=== PATIENT | female | born 1965 | race Caucasian/White ===

== ENCOUNTER → 2018-10-13 | Outpatient (CLI) | payer OTHER ==
--- NOTE | 2018-10-13 13:10 | CARDNUC ---
[place] [address] CARDIAC NUCLEAR IMAGING REPORT Name: JEFF LUCAS Room: [facility]#: [id number] Admission: 10/13/18 Attend Phys: Griffin Liz, Discharge: Date of : 61 Date of Service: 10/13/18 1310 Report #: [id number] THIS REPORT FOR: //name// APPROVED REPORT Imaging Protocol: Rest Tc-99m/Stress Tc-99m 1 day Study performed: 10/13/2018 09:21:20 Indication: Chest pain Patient Location: Out-Patient Stress Tech: Edna Lynne Stress Nurse: Dayami Appiah RN NM Tech:DHARMESH Colon Ht: 5 ft 6 in Wt: 145 lbs BSA: 1.74 m2 BMI: 23.40 Medical History Medical History: Angina, CAD s/p [place], CAD s/p stent, Current Smoker, Diabetes, Fatigue, HTN, Hyperlipidemia, Back Surgery, FX Spine. Medications: ASA 81 Mg, Atorvastatin, Carvedilol, K+, Losartan. Allergies: Nacotics/Oxycotin, Sulfa ABT. Cardiac Risk Factors: Age, Current Smoker, DM, HTN, Hyperlipidemia. Previous Cardiac Procedures: Myocardial infarction, PCI Pretest Chest Pain Characteristics: No chest pain Exercise History: Indeterminate Physical Disabilities: s/p Back surgery from FX spine. Meds Held (24 hrs): Carvedilol. Resting Data Rest SPECT myocardial perfusion imaging was performed in supine position 30 minutes following the intravenous injection of 11.1 mCi of Tc-99m Sestamibi. Time of rest injection: 804 Date: 10/13/2018 The images were gated to evaluate regional wall motion and calculate left ventricular ejection fraction. Administration Route: IV Administration Site: Right Hand Pharmacologic Stress Pharmacologic stress test was performed by injecting Regadenoson 0.4 mg IV push over 10-15 seconds immediately [place] [address] CARDIAC NUCLEAR IMAGING REPORT Name: JEFF LUCAS Room: [facility]#: [id number] Admission: 10/13/18 Attend Phys: Griffin Liz, Discharge: Date of : 61 Date of Service: 10/13/18 1310 Report #: [id number] injection of 35.0 mCi of Tc-99m Sestamibi. Time of stress injection: 939 Date: 10/13/2018 Administration Route: IV Administration Site: Right Hand Gated Stress SPECT was performed 40 minutes after stress injection. The images were gated to evaluate regional wall motion and calculate left ventricular ejection fraction. Prone imaging was performed. Stress Test Details Stress Test: Pharmacologic stress was paired with low level exercise. Reason for pharmacologic stress test: physical limitation with back.. 60 mg caffeine given for Dizziness, chest pressure.. HR Max Heart Rate (APMHR): 165 bpm Resting HR: 88 bpm Target HR (85% APMHR): 140 bpm Max HR Achieved: 125 bpm % of APMHR: 75 Recovery HR: 96 bpm HR response to stress: Normal HR response to stress BP Resting BP: 178/109 mmHg Max BP: 186/112 mmHg Recovery BP: 187/117 mmHg BP response to stress: Normal blood pressure response to stress. ECG Resting ECG: nsr Stress ECG: nsr ST Change: .5mm ST horizontal ST depression Arrhythmia: none Recovery ECG: nsr Recovery ST Change: none Recovery Arrhythmia: none Clinical Reason for Termination: Completed protocol Stress Symptoms: Chest Tightness, SOA, Dizzy. Exercise duration: 4 min 01 sec Exercise capacity: 2.30 [place] [address] CARDIAC NUCLEAR IMAGING REPORT Name: LUCASJEFF Room: [facility]#: [id number] Admission: 10/13/18 Attend Phys: Griffin Liz, Discharge: Date of : 61 Date of Service: 10/13/18 1310 Report #: [id number] 53 year old female presented with recent HX Chest pressure. Back pain post surgery required low exercise Lexiscan test. Walking Lexiscan was well tolerated. Recovery required 60 MG of IV caffeine for effective resolution of dizziness and chest pressure, effective results. Patient was escorted by staff to Nuclear Medicine for images. Patient was stable with no further complaints at that time. PO Home B/P medication was taken by patient before leaving test room. Stress ECG Conclusion equivocal ECG findings Study Quality Study: Good Artifact: Mild Breast artifact Lung Uptake: Normal Study Data At rest, the left ventricular ejection fraction was 61%.. Post stress, the left ventricular ejection was 65%.. SSS: 18 SRS: 13 SDS: 5 TID = 1.04. Perfusion Review of SPECT images following vasodilator stress reveal a moderate sized , severe intensity basal to mid lateral wall defect. When imaged at rest this defect is noted to be fully reversible. No other perfusion defects are seen. No periinfarct ischemia is present.Prone imaging shows the defect persists. Images were reviewed using W4. Wall Motion basolateral hypokinesis Nuclear Conclusion ECG Findings: equivocal Clinical Findings: positive for ischemia Nuclear Findings: positive for ischemia Exercise Capacity: not assessed Left Ventricular Function: normal Risk Study: moderate There is a moderate sized ischemic abnormality of the basolateral wall.[place] [address] CARDIAC NUCLEAR IMAGING REPORT Name: JEFF LUCAS [id number] Admission: 10/13/18 Attend Phys: Griffin Liz, Discharge: Date of : 61 Date of Service: 10/13/18 1310 Report #: [id number] <Conclusion> equivocal ECG findings <ELECTRONICALLY SIGNED> By: Chele Heard MD, FACC 10/13/180 09 09 Chele Heard MD, FACC /INF
== END ==
LOC: M.NUC 09-10 16:06 → M.RAD 07:40 → M.NUC 08:00
DX: Z12.31 Encounter for screening mammogram for malignant neoplasm of breast (principal); I25.10 Atherosclerotic heart disease of native coronary artery without angina pectoris; M54.9 Dorsalgia, unspecified; G89.29 Other chronic pain; I10 Essential (primary) hypertension; E11.9 Type 2 diabetes mellitus without complications; F17.210 Nicotine dependence, cigarettes, uncomplicated; Z85.41 Personal history of malignant neoplasm of cervix uteri; Z85.828 Personal history of other malignant neoplasm of skin; Z90.710 Acquired absence of both cervix and uterus; Z95.5 Presence of coronary angioplasty implant and graft; Z79.899 Other long term (current) drug therapy

== ENCOUNTER → 2018-10-29 | Outpatient (CLI) | payer OTHER ==
[~2018-10-29] VITALS: Ht 170.2 cm; Wt 65.8 kg
[~2018-10-29] MED LIST: ASPIR 8181 MG PO; CATAPRES0.1 MG PO; COREG25 MG PO; CRANBERRY CONC1 EAC1 PO; FISH OIL 1,2001 EAC4 PO; HYZAAR 50-12.51 EACH PO; LIPITOR80 MG PO; NEURONTIN 300300 M1 PO; PAXIL 20 MG TAB20 MG PO; POTASSIUM600 MG PO; PROBIOTIC1 EAC1 PO; TRAMADOL 50 MG50 MG PO; TYLENOL EXTRA500 MG PO; ZANTAC 150MG T150 MG PO
[2018-10-29 11:37] LABS: HEMATOCRIT 47.6 % (37.0-47.0); HEMOGLOBIN 15.9 gm/dL (12.0-15.0); MCHC 33.3 g/dL (28.0-37.0); MCV 86.8 fL (80.0-100.0); MPV 8.4 fl. (7.2-11.1); RBC 5.48 mil/uL (4.20-5.00); RDW-CV 14.9 % (10.5-14.5); WBC 8.8 thou/uL (4.0-11.0)
[2018-10-29 11:46] LABS: ANION GAP 6 mmol/L (7-16); BUN 17 mg/dL (7-18); CALCIUM 9.6 mg/dL (8.5-10.1); CHLORIDE 103 mmol/L (98-107); CO2 32 mmol/L (21-32); GLUCOSE 146 mg/dL (70-99); POTASSIUM 3.6 mmol/L (3.5-5.1); SODIUM 141 mmol/L (136-145)
[2018-10-29 11:47] LABS: APTT 27.4 Seconds (25.0-31.3); INR 0.9; PROTIME 9.4 Seconds (9.20-11.50)
[2018-10-29 11:51] LABS: ALBUMIN 3.6 g/dL (3.4-5.0); ALKALINE PHOSPHATASE 113 U/L (46-116); CHOLESTEROL 141 mg/dL (<200); HDL CHOLESTEROL 52 mg/dL (>40); LDL CHOLESTEROL 64 mg/dL (<100); SGOT 21 U/L (15-37); SGPT 36 U/L (30-65); TC:HDL 2.7 Ratio (Not establshd); TOTAL BILIRUBIN 0.3 mg/dL (<0.1-1.0); TOTAL PROTEIN 7.4 g/dL (6.4-8.2); TRIGLYCERIDE 129 mg/dL (<150); VLDL 26 mg/dL (<40)
[2018-10-29 11:52] LABS: SERUM ASSESSMENT Clear
[2018-10-29 11:54] VITALS: BP 153/94
--- NOTE | 2018-10-29 17:05 | EKG ---
[place] [address] ELECTROCARDIOGRAM REPORT Name: JEFF LUCAS Room: [facility]#: [id number] Admission: 10/29/18 Attend Phys: Griffin Liz MD Discharge: Date of : 61 Report #: [id number] THIS REPORT FOR: //name// [facility] Test Date: 2018-10-29 Test Time: 11:19:15 Pat Name: JEFF LUCAS Department: Room: Gender: F [employer] Cook: : 1965 Requested By: Griffin Liz Order Number: [id number] Reading MD: Griffin Liz Measurements Intervals [place] Rate: 74 P: 48 PA: 165 QRS: 0 QRSD: 96 T: 4 QT: 383 QTc: 425 Interpretive Statements Sinus rhythm Left ventricular hypertrophy, by voltage Inferior infarct, old Compared to ECG 11/29/2008 16:50:23 Left ventricular hypertrophy now present Myocardial infarct finding now present Sinus tachycardia no longer present Electronically Signed On 10-29-2018 17:05:25 CDT by Griffin Liz [email or web address] <ELECTRONICALLY SIGNED> By: Griffin Liz MD, [facility] 10/29/18 2675 1119 1119 Griffin Liz MD, [facility] /EPI
--- NOTE | 2018-11-08 20:28 | CARD ---
[address] [address] CARDIAC CATH REPORT Name: JEFF LUCAS Room: [facility] Olivo#: [id number] Admission: 10/29/18 Attend Phys: Griffin Liz MD Discharge: Date of : 61 Report #: [id number] THIS REPORT FOR: //name// ADDENDUM APPROVED REPORT Study performed: 10/29/2018 11:40:32 Patient Details Patient Status: OP Room #: The patient is a 53 year-old female Event Personnel Griffin Liz Media Liaison Officer, Selene Clarke RN Commission Clerk, Josue Mckay GARDEN WORKER Scrub, Vane Nelson RTR Scrub, Kunal Spence (R) Monitor, Johanne Bauer RTR Monitor, Antolin Matos It Portfolio Manager Procedures Performed Left Heart Cath w/or w/o Coronaries [id number] LHC and PTCA Indication Chest pain Risk Factors Hypercholesterolemia, Coronary Artery Disease Previous Procedures/Diagnoses Previous PCI Admission/Lab Medications/Medications given during procedure Heparin Unfract. Procedure Narrative The patient was brought electively to the Cardiac Catheterization Laboratory and was prepped and draped in a sterile manner. The right wrist was infiltrated with subcutaneous anesthesia. A Slender Glidesheath sheath was inserted into the right radial artery. Coronary angiography was performed using coronary diagnostic catheters. The right coronary system was accessed and visualized with a DCR: Lincoln 4.0 5fr catheter. The left coronary system was accessed and visualized with a JL4 5fr catheter. The left ventricle was accessed and visualized with a PC: Angled Pig 5fr catheter. Left ventricular/Aortic Valve gradient assessed via catheter pullback. Left ventriculogram was performed in [place] [address] CARDIAC CATH REPORT Name: SHAYYJEFF HENDERSONN Room: [facility]#: [id number] Admission: 10/29/18 Attend Phys: Griffin Liz MD Discharge: Date of : 61 Report #: [id number] was deployed with a 6 Fr regular vascular band. The patient tolerated the procedure well and there were no complications associated with the procedure. There was no hematoma. Intraoperative Conscious Sedation Sedation start time: 1207 Case end Time: 1325 Fentanyl 75 mcg Versed 3 mg Fluoro Time: 13.5 minutes Dose: DAP 543040 cGycm2 1865 mGy Contrast Type and Amount: Omnipaque 200 ml Coronary Angiography The patient's coronary anatomy is co- dominant. Diagnostic Cath Left Main Normal. LAD Mildly plaqued up to 10% in the proximal and midportion without hemodynamically significant stenoses. The distal vessel is normal. Diagonal 1 Small and mildly diffusely plaqued. Diagonal 2 Large branched and normal. Circumflex Plaqued proximally and totally occluded after the takeoff of a moderate size second marginal branch. The distal circumflex fills by left to left collaterals. OM1 Small and mildly diffusely plaqued without hemodynamically stenosis. OM2 Large in size with no significant disease. OM3 Large vessel filled by left to left collaterals. Right Coronary Totally occluded proximally with recanalization filling the mid and distal RCA. R PDA Small in caliber and free of significant disease. Left Ventriculography Left Ventriculography was not performed. Hemodynamics The aortic pressure is 131/73 mmHg with a mean of 98 mmHg. The left ventricular pressure is 113/2 mmHg with a mean of mmHg. The left ventricular end diastolic pressure is 5 mmHg. There was no gradient across the aortic valve upon pullback. Pullback from the left ventricle to the aorta revealed no gradient across the aortic valve[place] [address] CARDIAC CATH REPORT Name: LUCASJEFF LURDES Room: [facility]#: [id number] Admission: 10/29/18 Attend Phys: Griffin Liz MD Discharge: Date of : 61 Report #: [id number] Anticoagulation was achieved with Heparin. Percutaneous coronary intervention was performed on the mid right coronary artery. The lesion stenosis prior to intervention was 100% with EMA 1 flow. A 6FR JCR 4 100CM Guide Catheter was used to engage the rca ostium. A IG: BMW 190cm Interventional Guidewire was used to cross the lesion. BALLOON DILATION Unable to cross occlusion with neither bmw, fielder xt, nor choice pt wire. Occlusion felt to represent a chronic occlusion with antegrade flow by bridging collaterals. Final angiography reveals 100 % stenosis with EMA 1 flow. PCI Technique Lesion 2 Percutaneous Coronary Intervention was performed on the mid circumflex artery segment. Percutaneous coronary intervention was performed on the mid circumflex artery segment. The lesion stenosis prior to intervention was 100% with EMA 0 flow. A 6FR XB 3.5 100CM Guide Catheter was used to engage the lm ostium. A IG: BMW 190cm Interventional Guidewire was used to cross the lesion. Balloon Dilation Unable to cross occlusion with neither bmw, fielder xt, nor choice pt wire. Occlusion felt to represent a chronic occlusion. Final angiography reveals 100 % stenosis with EMA 0 flow. Conclusion 1. chronic occlusion of stent in the mid circumflex artery. 2. chronic occlusion of the mid rca that filled by bridging collaterals 3. unalbe to advance several wires across occlusions in neither the circumflex nor rca Recommendations 1. Continue aggressive risk factor modification and medical management. Diagnostic Cath Approved by: Antolin Matos MD Date/Time: <ELECTRONICALLY SIGNED> By: Antolin Matos MD, [facility] 11/08/182027 27 27Davijosi Matos MD, FACC /INF
== END | disposition home or self-care (01) ==
LOC: M.CL 10:45
PROVIDERS: Internal Medicine Cardiovascular Disease
DX: I25.10 Atherosclerotic heart disease of native coronary artery without angina pectoris (principal); I25.82 Chronic total occlusion of coronary artery; T82.855A Stenosis of coronary artery stent, initial encounter; E78.00 Pure hypercholesterolemia, unspecified; I10 Essential (primary) hypertension; I25.2 Old myocardial infarction; F17.210 Nicotine dependence, cigarettes, uncomplicated; Z98.890 Other specified postprocedural states; Z90.710 Acquired absence of both cervix and uterus; Z79.899 Other long term (current) drug therapy; Z85.41 Personal history of malignant neoplasm of cervix uteri; Z85.828 Personal history of other malignant neoplasm of skin; Z88.8 Allergy status to other drugs, medicaments and biological substances; Z79.82 Long term (current) use of aspirin

== ENCOUNTER → 2018-11-16 | Outpatient (CLI) | payer OTHER ==
[~2018-11-16] VITALS: Ht 167.6 cm; Wt 65.8 kg
[2018-11-16] VITALS (9 sets, daily range): BP systolic 134–1471; BP diastolic 82–947
[2018-11-16 10:00] LABS: HEMATOCRIT 46.9 % (37.0-47.0); HEMOGLOBIN 15.7 gm/dL (12.0-15.0); MCH 28.9 pg (26.0-34.0); MCHC 33.5 g/dL (28.0-37.0); MCV 86.3 fL (80.0-100.0); MPV 8.2 fl. (7.2-11.1); RBC 5.43 mil/uL (4.20-5.00); RDW-CV 14.6 % (10.5-14.5); WBC 9.2 thou/uL (4.0-11.0)
[2018-11-16 10:21] LABS: ANION GAP 9 mmol/L (7-16); BUN 22 mg/dL (7-18); CALCIUM 9.4 mg/dL (8.5-10.1); CHLORIDE 101 mmol/L (98-107); CO2 29 mmol/L (21-32); GLUCOSE 148 mg/dL (70-99); POTASSIUM 3.8 mmol/L (3.5-5.1); SODIUM 139 mmol/L (136-145)
[2018-11-16 10:25] LABS: ALBUMIN 3.6 g/dL (3.4-5.0); ALKALINE PHOSPHATASE 119 U/L (46-116); CHOLESTEROL 144 mg/dL (<200); HDL CHOLESTEROL 58 mg/dL (>40); LDL CHOLESTEROL 34 mg/dL (<100); SGOT 16 U/L (15-37); SGPT 35 U/L (30-65); TC:HDL 2.5 Ratio (Not establshd); TOTAL BILIRUBIN 0.3 mg/dL (<0.1-1.0); TOTAL PROTEIN 7.4 g/dL (6.4-8.2); TRIGLYCERIDE 264 mg/dL (<150); VLDL 53 mg/dL (<40)
[2018-11-16 10:26] LABS: APTT 25.7 Seconds (25.0-31.3); INR 0.9; PROTIME 9.4 Seconds (9.20-11.50); SERUM ASSESSMENT Clear
--- NOTE | 2018-11-16 17:06 | EKG ---
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: DIDIER : 1965 Requested By: Calvin Gandara Order Number: [id number] Barrera MD: Griffin Liz Measurements Intervals [place] Rate: 79 P: 53 [place]: 168 QRS: 10 QRSD: 96 T: 7 QT: 387 QTc: 444 Interpretive Statements Sinus rhythm Inferior infarct, old Compared to ECG 10/29/2018 11:19:15 Left ventricular hypertrophy no longer present Myocardial infarct finding still present Electronically Signed On 11-16-2018 17:06:01 CDT by Griffin Liz [email or web address] <ELECTRONICALLY SIGNED> By: Griffin Liz MD, [facility] 11/16/18 1706 1007 1007 Griffin Liz MD, FACC /EPI
--- NOTE | 2018-11-17 13:50 | CARD ---
[address] [address] CARDIAC CATH REPORT Name: JEFF LUCAS Room: [facility] Olivo#: [id number] Admission: 11/16/18 Attend Phys: Griffin Liz MD Discharge: Date of : 61 Report #: [id number] THIS REPORT FOR: //name// APPROVED REPORT Study performed: 11/16/2018 10:43:14 Patient Details Patient Status: Out-Patient Room #: The patient is a 53 year-old female Event Personnel Calvin Gandara Drain Tile Machine Operator, Selene Clarke RN Magneto Specialist, Josue Mckay REFINERY TECHNICIAN Scrub, Shaq Delarosa REFINERY TECHNICIAN Monitor, Vane Nelson RTR Monitor Procedures Performed Left Heart Cath w/or w/o Coronaries; unsuccessful attempt at recanalization of the chronic total occlusion of the mid circumflex Indication Stable angina , Positive stress test Risk Factors Hypercholesterolemia, Hypertension Admission/Lab Medications/Medications given during procedure Heparin Unfract. Procedure Narrative The patient was brought electively to the Cardiac Catheterization Laboratory and was prepped and draped in a sterile manner. The right femoral was infiltrated with 2% Lidocaine subcutaneous anesthesia. A [place] 6 FR sheath was inserted into the right femoral artery. Coronary angiography was performed using coronary diagnostic catheters. The right coronary system was accessed and visualized with a Diagnostic JR 4 catheter. The left coronary system was accessed and visualized with a Diagnostic JL 4 catheter. Hemostasis was obtained with manual pressure following sheath removal without any complications. The patient tolerated the procedure well and there were no complications associated with the procedure. Intraoperative Conscious Sedation Sedation start time: 11:08 Case end Time: [address] [address] CARDIAC CATH REPORT Name: JEFF LUCAS [id number] Admission: 11/16/18 Attend Phys: Griffin Liz MD Discharge: Date of : 61 Report #: [id number] 12:06 Fentanyl 100 mcg Versed 4 mg Fluoro Time: 19.2 minutes Dose: DAP 214742 cGycm2 2717 mGy Contrast Type and Amount: Visipaque 220 ml Diagnostic Cath Left Main 0% narrowing LAD 40% proximal LAD stenosis Circumflex 100% chronic total occlusion of the mid circumflex with left to left collaterals filling the distal circumflex; there is 40% first marginal narrowing Right Coronary 90% proximal right coronary stenosis with 100% mid vessel occlusion with [id number]-ztcyn collaterals filling the distal right coronary system Left Ventriculography Left Ventriculography was not performed. Hemodynamics The aortic pressure is 141/76 mmHg with a mean of 98 mmHg. The left ventricular pressure is 143/1 mmHg with a mean of mmHg. The left ventricular end diastolic pressure is 10 mmHg. There was no gradient across the aortic valve upon pullback. PCI Technique I attempted to recanalize the chronic total occlusion of the mid circumflex. I placed a 6 Greenlandic XB LAD guide in the left coronary ostium and utilized support catheter. With the finecross catheter in place, I attempted to traverse the segment of chronic total occlusion of the mid circumflex with a soft wire and subsequently with a Fielder XT and a miracle bro 3. I was unable to traverse a segment of chronic total occlusion with reentry into the lumen distally. After several attempts, the procedure was abandoned and a final cineangiogram of the left coronary artery was obtained. The guiding catheter microcatheter and wire were withdrawn from the arterial circuit the arterial sheath was removed and local hemostasis was achieved with manual compression. Conclusion #1 significant multivessel coronary artery disease characterized by the following: A 40% [place] [address] CARDIAC CATH REPORT Name: JEFF LUCAS [id number] Admission: 11/16/18 Attend Phys: Griffin Liz MD Discharge: Date of : 61 Report #: [id number] B1 100% chronic total occlusion of the mid circumflex with 40% first marginal narrowing and kurq-[id number] collaterals filling the distal circumflex C 90% proximal right coronary stenosis with 100% chronic total occlusion of mid right coronary artery with hjvz-xn-vfrmr collaterals filling the distal right coronary system #2 normal left-sided hemodynamics study #3 unsuccessful attempt at recanalization of the chronic total occlusion of the mid circumflex Recommendations Cardiac Risk Reduction Program Aggressive Medical Therapy Diagnostic Cath Approved by: Calvin Gandara MD Date/Time: 11/17/2018 13:46:48 <ELECTRONICALLY SIGNED> By: Calvin Gandara MD, [facility] 11/17/18 1350 49 1350Calvin Gandara MD, [facility] /INF
== END | disposition home or self-care (01) ==
LOC: M.CL 09:18
PROVIDERS: Internal Medicine
DX: I25.118 Atherosclerotic heart disease of native coronary artery with other forms of angina pectoris (principal); I25.82 Chronic total occlusion of coronary artery; I25.2 Old myocardial infarction; E78.00 Pure hypercholesterolemia, unspecified; F17.210 Nicotine dependence, cigarettes, uncomplicated; Z85.828 Personal history of other malignant neoplasm of skin; Z90.710 Acquired absence of both cervix and uterus; Z98.890 Other specified postprocedural states; Z79.899 Other long term (current) drug therapy; Z85.41 Personal history of malignant neoplasm of cervix uteri; Z88.8 Allergy status to other drugs, medicaments and biological substances; Z79.82 Long term (current) use of aspirin; Z79.01 Long term (current) use of anticoagulants

== ENCOUNTER 2018-12-15 20:19 | Inpatient (IN) | payer OTHER ==
[~2018-12-15] VITALS: Ht 167.6 cm; Wt 74.7 kg
--- NOTE | ~2018-12-15 | EEG ---
[address] [address] EEG STUDY REPORT Name: JEFF LUCAS Room: [address] M.R.#: [id number] Admission: 12/16/18 Attend Phys: Jaleel Villaseñor MD Discharge: Date of : 61 Report #: [id number] THIS REPORT FOR: //name// [facility] DATE OF SERVICE: 12/16/2018 This patient is admitted with an episode of confusion. EEG is being done to evaluate that further. EEG was done by placing the electrode by standard 10-20 system of electrode placement. Both referential and sequential montages were used for recording. Background activity in this patient's EEG is about 9 Hz and 30 microvolt. The patient went to sleep and that is associated with bilateral slowing and vertex sharp waves. Photic stimulation is unremarkable. Throughout the record, no active epileptiform activity was noticed. IMPRESSION: This patient's EEG does not demonstrate any clear-cut epileptiform activity and was mostly unremarkable. Thank you very much for this referral. By: 1807 2056Miguel Smith MD /nt
--- NOTE | ~2018-12-15 | CON ---
[address] [address] CONSULTATION Name: LUCASJEFF HENDERSONN Room: [address] M.R.#: [id number] Admission: 12/16/18 Attend Phys: Jaleel Villaseñor MD Discharge: Date of : 61 Report #: [id number] THIS REPORT FOR: //name// CC: Jaleel Garcia DATE OF SERVICE: 12/16/2018 HISTORY OF PRESENT ILLNESS: This is a 53-year-old female patient who was admitted last night with unusual symptoms. She had an episode where she had double vision. She got ataxic and she got confused. She had just started cardiac medication Imdur, as I understand, and her blood pressure did fall down to 110 that was the lowest systolic blood pressure here. She said she never had this kind of episode and she is not anxious. I talked to the Emergency Room physician and he did a CT scan and subsequently a CT angiogram that looks mostly unremarkable. She feels she is back to the baseline. She is able to ambulate. REVIEW OF SYSTEMS: Positive for coronary artery disease and she had an episode described above. She denies any psychiatric history. She had some back problems and cervical cancer. She had a stent placed in 2008 and she has a history of hypertension. This was a relevant 14-point review of system. PAST MEDICAL HISTORY: Negative for this kind of episode. FAMILY HISTORY: Positive for stroke, but in the older age. SOCIAL HISTORY: She smokes, but she said she is trying to quit. PHYSICAL EXAMINATION: NEUROLOGIC: Indicate that she is alert. She is responsive. She can follow simple commands. Her affect looks somewhat unusual. Cranial nerve examinations appear unremarkable. Neuromuscular examination also looks symmetrical. There is no cerebellar sign. I could not look at the patient's fundus. There is no meningeal sign. Pulses appeared to be palpable. She has no edema, cyanosis or jaundice. VITAL SIGNS: Blood pressure is 132/90, respirations 17, pulse is 78, and temperature is 97.8. LABORATORY DATA: White count is 9.5. Sodium is 137. She had a CT and CT angio, which looks mostly unremarkable. IMPRESSION: An episode which is poorly defined. If we can find some abnormality in the posterior fossa, we can make a case that hypotension caused the symptoms like she had. Otherwise, it is difficult to [place] [address] CONSULTATION Name: JEFF LUCAS Room: [address] IN [facility]#: [id number] Admission: 12/16/18 Attend Phys: Jaleel Villaseñor MD Discharge: Date of : 61 Report #: [id number] PLAN: We will get an MRI done, we can get an EEG done. If they are also unremarkable then the main management is going to be the management of her vascular risk factors. I ordered the workup, we will check on that and see if that shows any abnormality. Thank you very much for this referral. By: 1133 2203Pankita Smith MD /nt
[2018-12-15 20:19] VITALS: BP 140/92
[2018-12-15] MEDS ORDERED: PLAVIX 75 MG TA75 M1 PO (20:32)
[2018-12-15] MEDS ORDERED: METOPROLOL TART25 MG PO (20:34)
[2018-12-15 21:05] LABS: ABSOLUTE EOSINOPHILS 0.1 thou/uL (0.0-0.7); ABSOLUTE LYMPHOCYTES 3.1 thou/uL (0.8-5.3); ABSOLUTE MONOCYTES 0.7 thou/uL (0.0-1.2); ABSOLUTE NEUTROPHILS 5.5 thou/uL (1.6-8.1); BASOPHILS 0.4 %; EOSINOPHILS 1.5 %; HEMATOCRIT 41.5 % (37.0-47.0); HEMOGLOBIN 13.9 gm/dL (12.0-15.0); LYMPHOCYTES 32.4 %; MCH 29.4 pg (26.0-34.0); MCHC 33.4 g/dL (28.0-37.0); MCV 88.1 fL (80.0-100.0); MONOCYTES 7.4 %; MPV 7.9 fl. (7.2-11.1); NUCLEATED RBCS 0 /100WBC; PLATELET COUNT* 225 thou/uL (150-400); POLYS 58.3 %; RBC 4.71 mil/uL (4.20-5.00); RDW-CV 14.5 % (10.5-14.5); WBC 9.5 thou/uL (4.0-11.0)
[2018-12-15 21:14] LABS: ANION GAP 9 mmol/L (7-16); BUN 18 mg/dL (7-18); CALCIUM 9.4 mg/dL (8.5-10.1); CHLORIDE 101 mmol/L (98-107); CO2 27 mmol/L (21-32); CREATININE 0.9 mg/dL (0.6-1.3); GLUCOSE 94 mg/dL (70-99); POTASSIUM 3.3 mmol/L (3.5-5.1); SODIUM 137 mmol/L (136-145)
[2018-12-15 21:18] LABS: PROTIME 10.2 Seconds (9.20-11.50)
[2018-12-15 21:25] LABS: ALBUMIN 3.6 g/dL (3.4-5.0); ALKALINE PHOSPHATASE 99 U/L (46-116); LIPASE 282 U/L (73-393); NT-PRO BRAIN NAT PEPTIDE 212 pg/mL (<300); SGOT 22 U/L (15-37); SGPT 32 U/L (30-65); TOTAL BILIRUBIN 0.5 mg/dL (<0.1-1.0); TROPONIN-I LEVEL <0.06 ng/mL (<0.06)
[2018-12-15] MEDS ORDERED: IMDUR 30 MG TAB30 M1 PO (21:37)
[2018-12-15 22:21] LABS: URINE BILIRUBIN NEGATIVE (Negative); URINE BLOOD NEGATIVE (Negative); URINE CLARITY CLEAR; URINE COLOR YELLOW; URINE GLUCOSE-RANDOM NEGATIVE (Negative); URINE KETONES NEGATIVE (Negative); URINE LEUKOCYTES-REFLEX NEGATIVE (Negative); URINE NITRITE-REFLEX NEGATIVE (Negative); URINE PROTEIN NEGATIVE (Negative); URINE SPECIFIC GRAVITY <= 1.005 (1.005-1.030); URINE UROBILINOGEN 0.2 E.U./dl (0.2-1.0)
[2018-12-15 22:28] LABS: AMP/METHAMP Negative (Negative); BARBITURATES Negative (Negative); BENZODIAZEPINES Negative (Negative); COCAINE Negative (Negative); METHADONE Negative (Negative); OPIATES Negative (Negative); PCP Negative (Negative); THC Negative (Negative)
[2018-12-16] VITALS (8 sets, daily range): BP systolic 108–158; BP diastolic 65–90
--- NOTE | 2018-12-16 10:27 | EKG ---
[place] [address] ELECTROCARDIOGRAM REPORT Name: JEFF LUCSA Room: [address] ADM IN .R.#: [id number] Admission: 12/16/18 Attend Phys: Jaleel Villaseñor MD Discharge: Date of : 61 Report #: [id number] THIS REPORT FOR: //name// 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: [place] : 1965 Requested By: Mitch Troy Order Number: [id number] MD: Antolin Matos Measurements Intervals [place] Rate: 71 P: 48 PA: 172 QRS: -7 QRSD: 98 T: -4 QT: 406 QTc: 442 Interpretive Statements Sinus rhythm Left ventricular hypertrophy Inferior infarct, old Compared to ECG 11/16/2018 10:07:40 Left ventricular hypertrophy now present Myocardial infarct finding still present Electronically Signed On 12-16-2018 10:27:02 CDT by Antolin Matos [email or web address] <ELECTRONICALLY SIGNED> By: Antolin Matos MD, [facility] 12/16/18 1027 2030 29 Antolin Matos MD, [facility] /EPI
--- NOTE | 2018-12-16 13:43 | 2DMMODE ---
[place] [address] 2 D/M-MODE ECHOCARDIOGRAM Name: JEFF LUCAS Room: [facility]M [facility]#: [id number] Admission: 12/16/18 Attend Phys: Jaleel Villaseñor, Discharge: Date of : 61 Date of Service: 12/16/18 1343 Report #: [id number] THIS REPORT FOR: //name// APPROVED REPORT Study performed: 12/16/2018 10:50:17 EXAM: Limited 2D Echocardiogram Patient Location: In-Patient Room #: 218 Status: routine BSA: 1.81 HR: 78 bpm BP: 132/90 mmHg Rhythm: NSR Other Information Study Quality: Good Indications CVA/TIA Echo Enhancing Agent Indication: Rule out Shunt Agent(s) / Amount(s) Used: Agitated Saline 10 cc Left Ventricle The left ventricle is normal size. There is normal left ventricular wall thickness. The left ventricular systolic function is normal. The left ventricular ejection fraction is within the normal range. LVEF is 60-65%. Right Ventricle The right ventricle is normal size. The right ventricular systolic function is normal. Atria The left atrium size is normal. Interatrial septum is intact without evidence of ASD or PFO. The right atrium size is normal. Aortic Valve The aortic valve is normal in structure. Mitral Valve The mitral [place] [address] 2 D/M-MODE ECHOCARDIOGRAM Name: JEFF LUCAS Room: [address] IN M.R.#: [id number] Admission: 12/16/18 Attend Phys: Jaleel Villaseñor, Discharge: Date of : 61 Date of Service: 12/16/18 134 Report #: [id number] Tricuspid Valve The tricuspid valve is normal in structure. Pulmonic Valve Pulmonic valve is not well visualized. Great Vessels The aortic root is normal in size. IVC is normal in size and collapses >50% with inspiration. Pericardium There is no pericardial effusion. <Conclusion> LVEF is 60-65%. Interatrial septum is intact without evidence of ASD or PFO. <ELECTRONICALLY SIGNED> By: Antolin Matos MD, FACC 12/16/18 1343 42 42 Antolin Matos MD, FACC /INF
[2018-12-17] VITALS (11 sets, daily range): BP systolic 129–157; BP diastolic 75–103
--- NOTE | 2018-12-18 14:38 | CON ---
[address] [address] CONSULTATION Name: JEFF LUCAS Room: [address] IN M.R.#: [id number] Admission: 12/16/18 Attend Phys: Jaleel Villaseñor MD Discharge: 12/17/18 Date of : 61 Report #: [id number] THIS REPORT FOR: //name// CC: Jaleel Garcia DO DATE OF SERVICE: 12/17/2018 CARDIOLOGY CONSULT INDICATION: Stroke. HISTORY OF PRESENT ILLNESS: The patient is a 53-year-old white female with coronary artery disease. She had a drug-eluting stent placed to the mid circumflex in 2008 in the setting of an acute myocardial infarction. More recently, she underwent cardiac catheterization after an abnormal stress test and was found to have chronic total occlusion of the mid circumflex coronary artery and chronic total occlusion of the mid right coronary artery with collateral perfusion distally in both territories. The patient had unsuccessful percutaneous coronary intervention attempts. She has continued to have angina. She has tentatively been arranged to undergo chronic total occlusion intervention at [facility] in the near future. The patient was admitted to the hospital 2 nights ago with acute mental status changes, diplopia and slurred speech. It was felt that she likely had a stroke. She was offered, but not given reperfusion therapy with TPA. MRI today shows a small left thalamic subacute ischemic lacunar infarct. Her symptoms have totally resolved. At this point in time, she is without cardiac complaint. She is not having chest pain. PAST MEDICAL HISTORY: 1. Coronary artery disease with previous percutaneous coronary intervention to the mid circumflex remotely as outlined above. More recently, she was found to have chronic total occlusions of the mid right coronary artery and mid circumflex coronary artery. She has preserved left ventricular systolic function. 2. Hypertension. 3. Hyperlipidemia. 4. Type 2 diabetes mellitus. 5. Nephrolithiasis. 6. Chronic back pain. 7. Cervical cancer remotely. 8. Skin cancer removal, remotely. 9. Back surgery in 2007. 10. Hernia repair. 11. [place] [address] CONSULTATION Name: LUCASJEFF LRUDES Room: [address]#: [id number] Admission: 12/16/18 Attend Phys: Jaleel Villaseñor MD Discharge: 12/17/18 Date of : 61 Report #: [id number] FAMILY HISTORY: Positive for coronary artery disease in the father. SOCIAL HISTORY: The patient smokes 1/4 of a pack of cigarettes daily. She does not drink alcohol. ALLERGIES: SULFA. CURRENT MEDICATIONS: Tylenol p.r.n., aspirin 81 mg daily, Lipitor 80 mg daily, carvedilol 25 mg b.i.d., clonidine 0.1 mg q. 6 hours p.r.n., Plavix 75 mg daily, fish oil 1200 mg b.i.d., gabapentin 300 mg t.i.d., Imdur 30 mg daily, probiotic one capsule daily, losartan/hydrochlorothiazide 50/12.5 daily, Paxil 20 mg daily, potassium supplement at bedtime, Zantac 150 mg at bedtime, tramadol 50 mg q. 6 hours p.r.n. and vitamin supplement daily. REVIEW OF SYSTEMS: A 14-point review of systems is positive for exertional chest discomfort, mild lower extremity swelling, dyspnea on exertion, occasional dizziness and lightheadedness. Otherwise, 14-point review of systems is unremarkable. PHYSICAL EXAMINATION: VITAL SIGNS: Blood pressure 157/87 and pulse 89 and regular. GENERAL: This is a pleasant lady, in no distress. Mood and affect appropriate. HEENT: The patient is wearing glasses. Extraocular muscles intact. Mucous membranes are moist. NECK: Shows no jugular venous distention. I do not appreciate carotid bruit. CHEST: Reveals clear lung smalls without wheezes or rales. CARDIAC: Reveals a regular rhythm, normal S1 and S2. I do not appreciate gallop or murmur. ABDOMEN: Reveals normal bowel sounds. The abdomen is soft and nontender. EXTREMITIES: Shows no edema. Peripheral pulses 2+ palpable. SKIN: Warm and dry. EKG: A 12-lead EKG shows sinus rhythm without significant ST or T-wave abnormality. No pathologic Q-waves noted. Telemetry shows sinus rhythm with no evidence of underlying atrial fibrillation. IMPRESSION AND RECOMMENDATIONS: 1. Embolic stroke. Agree with the addition of Plavix. Would continue dual antiplatelet therapy indefinitely. Agree with 30-day event monitor to evaluate for possible atrial fibrillation. 2. Coronary artery disease, symptoms presently stable. Proceed with plans for evaluation for PHILOSOPHY INSTRUCTOR intervention. At this time, I have asked the patient to hold Imdur as this may be contributing with hypotensive effect. 3. Hypertension, adequately controlled on current regimen. 4. Dyslipidemia. Continue Lipitor 80 mg daily. [facility] [address] [place] [address] CONSULTATION Name: JEFF LUCAS Room: [address] IN .R.#: [id number] Admission: 12/16/18 Attend Phys: Jaleel Villaseñor MD Discharge: 12/17/18 Date of : 61 Report #: [id number] 5. Diabetes per primary physician. From a cardiac standpoint, the patient appears stable for discharge once event monitor is placed. <ELECTRONICALLY SIGNED> By: Griffin Liz MD, FACC 12/18/18 1438 1555 0119[facility] Liz MD, FACC /nt
== END 2018-12-17 17:03 | disposition home or self-care (01) | DRG 64 ==
LOC: M.ERS 20:19 → M.2W 12-16 → M.TBA-ER 12-16 → M.2W 12-16 01:19
PROVIDERS: Emergency Medicine; Internal Medicine; ADMIT Internal Medicine
DX: I63.81 Other cerebral infarction due to occlusion or stenosis of small artery (principal); G92 Toxic encephalopathy; I10 Essential (primary) hypertension; T50.905A Adverse effect of unspecified drugs, medicaments and biological substances, initial encounter; E78.5 Hyperlipidemia, unspecified; G89.29 Other chronic pain; M54.9 Dorsalgia, unspecified; I25.10 Atherosclerotic heart disease of native coronary artery without angina pectoris; F17.210 Nicotine dependence, cigarettes, uncomplicated; I95.9 Hypotension, unspecified; Z85.41 Personal history of malignant neoplasm of cervix uteri; Z90.710 Acquired absence of both cervix and uterus; Z88.2 Allergy status to sulfonamides; Z95.5 Presence of coronary angioplasty implant and graft; Z88.6 Allergy status to analgesic agent; Z82.3 Family history of stroke; Z82.49 Family history of ischemic heart disease and other diseases of the circulatory system; Y92.89 Other specified places as the place of occurrence of the external cause

== ENCOUNTER → 2019-06-15 | Outpatient (CLI) | payer OTHER ==
[~2019-06-15] MED LIST changes: +IMDUR 30 MG TAB30 M1 PO; +METOPROLOL TART25 MG PO; +PLAVIX 75 MG TA75 M1 PO
== END ==
LOC: M.RAD 06-09 16:00
DX: M85.88 Other specified disorders of bone density and structure, other site (principal); Z78.0 Asymptomatic menopausal state; Z00.00 Encounter for general adult medical examination without abnormal findings

== ENCOUNTER → 2019-10-01 | Outpatient (CLI) | payer OTHER ==
[~2019-10-01] MED LIST changes: +BUPROPION HCL100 MG PO; +EMERGEN-C 500500 MG PO; +MULTIVITAMINS1 EAC6 PO; +NITROGLYCERIN0.4 MG SUBLING; +VITAMIN D2 PO
== END ==
LOC: M.LAB 09:45
PROVIDERS: ATTEND Internal Medicine Gastroenterology
DX: Z01.812 Encounter for preprocedural laboratory examination (principal); R19.4 Change in bowel habit; R19.5 Other fecal abnormalities

== ENCOUNTER → 2019-10-08 | Day surgery (SDC) | payer OTHER ==
[2019-10-08 10:04] LABS: CALCIUM 9.1 mg/dL (8.5-10.1); CREATININE 1.3 mg/dL (0.6-1.3); POTASSIUM 3.9 mmol/L (3.5-5.1)
--- NOTE | 2019-10-08 10:31 | EKG ---
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: : 1965 Requested By: Sami Tyler Order Number: [id number] Reading MD: Antolin Matos Measurements Intervals Moody Rate: 80 P: 54 OK: 174 QRS: 22 QRSD: 93 T: 12 QT: 397 QTc: 458 Interpretive Statements Sinus rhythm Inferior infarct, old Compared to ECG 12/15/2018 20:30:27 Left ventricular hypertrophy no longer present Myocardial infarct finding still present Electronically Signed On 10-08-2019 10:30:40 CDT by Antolin Matos [email or web address] <ELECTRONICALLY SIGNED> By: Antolin Matos MD, [facility] 10/08/19 1030 0932 0932 Antolin Matos MD, [facility] /EPI
--- NOTE | 2019-10-11 16:07 | PATH ---
[address] [address] PATHOLOGY RPT PROCEDURE Name: GLORY SHAW Room: [facility]#: [id number] Admission: 10/08/19 Date of : 61 Discharge: Report #: [id number] Path Case #: [id number] [facility] Accession Number: [id number] . 01 Material submitted: . PART A: esophagus - ESOPHAGEAL BIOPSY AT 40CM PART B: colon - PROXIMAL ASCENDING COLON POLYP. Modifiers: proximal, ascending PART C: sigmoid colon - SIGMOID POLYP PART D: rectum - RECTAL POLYP X2 . 01 Clinical history: . Gerd, POS fecal occult blood test . 02 Diagnosis: A. 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 - There is no evidence of dysplasia or malignancy. (See comment) . B. Colonic mucosa, "proximal ascending colon polyp": - Fragments of tubular adenoma. - There is no evidence of high grade dysplasia or malignancy. . C. Colonic mucosa, "sigmoid polyp": - Hyperplastic polyp. - There is no evidence of adenomatous change, high grade dysplasia or malignancy. . D. Colonic mucosa, "rectal polyp x2": - One polyp reveals hyperplastic polyp. - The other fragment shows marked cautery artifact which is uninterpretable, however, favor hyperplastic polyp. (See comment) . ([facility]; 10/11/2019) [facility] 10/11/2019 1112 Local . 02 Comment: A, D. This case is also reviewed by Dr. Anna Ames. . If a malignancy is suspected, a repeat biopsy is indicated. . ([facility]; 10/11/2019) . 02 Electronically signed: . Michael Hewitt MD, [place] [address] PATHOLOGY RPT PROCEDURE Name: GLORY SHAW Room: [facility]#: [id number] Admission: 10/08/19 Date of : 61 Discharge: Report #: [id number] Path Case #: [id number] NPI- [id number] . 01 Gross description: . A. The specimen is received in formalin labeled "Glory Shaw, esophageal biopsy at 40 cm possible Mercado's" and consists of a fragment of malhotra tissue measuring 0.3 x 0.3 x 0.3 cm which is entirely submitted in A1. . B. The specimen is received in formalin labeled "Shaw, Glory, proximal ascending colon polyp" and consists of multiple polypoid fragments of pink malhotra tissue measuring 1.6 x 0.9 x 0.3 cm in aggregate which are entirely submitted in B1. . C. The specimen is received in formalin labeled "Shaw, Glory, sigmoid polyp" and consists of a fragment of pink-malhotra tissue measuring 0.5 x 0.5 x 0.4 cm which is entirely submitted in C1. . D. The specimen is received in formalin labeled "Shaw, Glory, rectal polyp x2" and consists of multiple fragments of pink-malhotra tissue measuring 0.6 x 0.4 x 0.2 cm in aggregate which are entirely submitted in D1. ([facility]; 10/08/2019) GABRIELLE/GABRIELLE 10/08/2019 2114 Local . 02 Pathologist provided ICD-10: K21.0, D12.2, K63.5, K62.1 . 02 CPT . 054468, 451869, 850355, 817640 Specimen Comment: A courtesy copy of this report has been sent to [phone] Specimen Comment: [phone] Specimen Comment: Report sent to Specimen Comment: Report sent to / DR MCCRAY Performed at: 01 [facility] [address], [place] [id number] MD Sathya Braden MD Phone: [phone] Performed at: 02 [facility] [address], [place], [place] [id number] MD Kike Garsia MD Phone: [phone]
== END | disposition home or self-care (01) ==
LOC: M.SUR 09:00
PROVIDERS: ATTEND Internal Medicine Gastroenterology
DX: R19.5 Other fecal abnormalities (principal); R13.12 Dysphagia, oropharyngeal phase; K21.0 Gastro-esophageal reflux disease with esophagitis; D12.2 Benign neoplasm of ascending colon; D12.5 Benign neoplasm of sigmoid colon; D12.8 Benign neoplasm of rectum; K57.30 Diverticulosis of large intestine without perforation or abscess without bleeding; K64.4 Residual hemorrhoidal skin tags; Z98.890 Other specified postprocedural states; Z79.899 Other long term (current) drug therapy

== ENCOUNTER → 2019-12-01 | Outpatient (CLI) | payer OTHER | LOC: M.RAD 09:52 | PROVIDERS: ATTEND Nurse Practitioner Adult Health | DX: Z12.31 Encounter for screening mammogram for malignant neoplasm of breast (principal); R13.10 Dysphagia, unspecified ==

== ENCOUNTER → 2020-03-20 | Outpatient (CLI) | payer OTHER | LOC: M.LAB 11:30 | PROVIDERS: ATTEND Surgery | DX: Z01.812 Encounter for preprocedural laboratory examination (principal); Z20.828 Contact with and (suspected) exposure to other viral communicable diseases ==

== ENCOUNTER → 2020-03-23 | Day surgery (SDC) | payer OTHER ==
[2020-03-23 10:44] LABS: HEMATOCRIT 44.4 % (37.0-47.0); HEMOGLOBIN 14.5 gm/dL (12.0-15.0); MCH 27.6 pg (26.0-34.0); MCHC 32.6 g/dL (28.0-37.0); MCV 84.8 fL (80.0-100.0); MPV 7.8 fl. (7.2-11.1); RBC 5.23 mil/uL (4.20-5.00); RDW-CV 15.4 % (10.5-14.5); WBC 9.2 thou/uL (4.0-11.0)
[2020-03-23 10:48] LABS: CALCIUM 9.4 mg/dL (8.5-10.1); CREATININE 1.2 mg/dL (0.6-1.3); POTASSIUM 4.2 mmol/L (3.5-5.1)
--- NOTE | 2020-03-27 12:44 | OP ---
[address] [address] OPERATIVE REPORT Name: JEFF LUCAS Room: [facility]#: [id number] Admission: 03/23/20 Attend Phys: Laura Reynolds DO Discharge: Date of : 61 Report #: [id number] THIS REPORT FOR: //name// cc: Alessandra Garcia Linda J. DO ~ CC: Laura MILLARD DATE OF SERVICE: 03/23/2020 PREOPERATIVE DIAGNOSIS: Perianal mass x 2 on the right buttock. POSTOPERATIVE DIAGNOSIS: Perianal mass x 2 on the right buttock. FINDINGS: Mass #1 measured 1 x 0.3 x 0.3 cm mass. Mass #2 measured 0.2 x 0.2 x 0.2 cm. SURGEON: Laura Reynolds DO COSURGEON: Nate Valenzuela DO, PGY-1. HOME HEALTH ADMINISTRATOR: Gabriel Vuong, MS4. PROCEDURE PERFORMED: Excision of perianal masses x 2. ANESTHESIA: LMA and local. ESTIMATED BLOOD LOSS: 3 mL DRAINS: None. SPECIMENS: Perianal masses x 2. COMPLICATIONS: None. CONDITION: Stable. DISPOSITION: PACU to home. HISTORY OF PRESENT ILLNESS: The patient is a very pleasant 54-year-old female who presented to my office with complaint of two large growing masses on her right buttock in the perianal area. 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 On physical exam, she did have 2 very firm large appearing masses in the perianal area [place] [address] OPERATIVE REPORT Name: JEFF LUCAS Room: [facility].#: [id number] Admission: 03/23/20 Attend Phys: aLura Reynolds DO Discharge: Date of : 61 Report #: [id number] was then consented for excision of these masses. Risks discussed included bleeding, infection, pain, scar formation, recurrence, need for further surgery and risks of general anesthesia. The patient understood these risks and elected to proceed. DESCRIPTION OF PROCEDURE: The patient was brought to the operating room. She was laid supine on the operating room table. SCDs were placed on bilateral lower extremities. Ancef was given in the perioperative period. General LMA anesthesia was induced by Anesthesia without difficulty. The patient was then placed in the right lateral decubitus position on a beanbag with all pressure points adequately cushioned. The perianal area and right buttock were prepped and draped in the standard sterile fashion. Timeout was performed to verify patient and procedure. A 10 mL of 0.5% Marcaine were injected in the area of the two masses, both masses were then excised utilizing an elliptical incision with #15 blade. Cautery was used for hemostasis. Both masses were handed off for permanent pathology . Mass #1 measured 1 x 0.3 x 0.3 cm. Mass #2 was 0.2 x 0.2 x 0.2. Depth of dissection on both was subcutaneous tissues. Both wounds were then closed with a 4-0 Monocryl. Skin was then cleansed and covered with Dermabond. The patient was then allowed to awake from anesthesia, was extubated and transported to the recovery room with no further difficulties. Counts were correct x 2 at the conclusion of the case. <ELECTRONICALLY SIGNED> By: Laura Reynolds DO 03/27/20 1244 1159 1210Chterrell Reynolds DO /nt
--- NOTE | 2020-03-28 16:06 | PATH ---
[address] [address] PATHOLOGY RPT PROCEDURE Name: SHAYYMAJOGLORY L Room: [facility]#: [id number] Admission: 03/23/20 Date of : 61 Discharge: Report #: [id number] Path Case #: [id number] [facility] Accession Number: [id number] . 01 Material submitted: . perianal area - PERIANAL MASSES . 01 Clinical history: . MASSES OF RIGHT ANUS . 02 Diagnosis: Perianal masses: - Benign skin with 2 epithelial inclusion cysts showing mild chronic inflammation. ([facility]:jolene; 03/27/2020) R 03/27/2020 1659 Local . 02 Electronically signed: . Kike Garsia MD, Pathologist NPI- [id number] . 01 Gross description: . Received in formalin labeled "Glory Shaw, perianal masses" are 2 malhotra-brown portions of skin measuring 0.5 x 0.3 x 0.2 cm and 1.2 x 0.5 x 0.5 cm. The margins are inked black and the larger piece is bisected to reveal a malhotra-white possible cyst measuring 0.8 cm in greatest dimension. The specimen is submitted entirely in cassette A1. ([facility]; 03/25/2020) [facility] 03/25/2020 0947 Local . 02 Pathologist provided ICD-10: L72.0 . 02 CPT . 678542 Specimen Comment: A courtesy copy of this report has been sent to [phone] Specimen Comment: [phone], Specimen Comment: Report sent to ,DR BANKS / DR MCCRAY Performed at: 01 [facility] [id number] [facility] [address], [place] [id number] MD Michael Hewitt MD Phone: [phone] Performed at: 02 [facility] [address], [place], [place] [id number] MD Kike Garsia MD Phone: [phone]
== END | disposition home or self-care (01) ==
LOC: M.SUR 06:42
PROVIDERS: ATTEND Surgery
DX: L72.0 Epidermal cyst (principal); K62.89 Other specified diseases of anus and rectum; I25.10 Atherosclerotic heart disease of native coronary artery without angina pectoris; F32.9 Major depressive disorder, single episode, unspecified; F41.9 Anxiety disorder, unspecified; Z98.890 Other specified postprocedural states; Z79.899 Other long term (current) drug therapy; Z85.828 Personal history of other malignant neoplasm of skin; Z90.710 Acquired absence of both cervix and uterus; Z88.8 Allergy status to other drugs, medicaments and biological substances

== ENCOUNTER → 2020-06-20 | Outpatient (CLI) | payer OTHER | LOC: M.CT 11:09 | PROVIDERS: ATTEND Family Medicine | DX: M47.816 Spondylosis without myelopathy or radiculopathy, lumbar region (principal); I71.4 Abdominal aortic aneurysm, without rupture; M43.27 Fusion of spine, lumbosacral region; M51.36 Other intervertebral disc degeneration, lumbar region; M48.061 Spinal stenosis, lumbar region without neurogenic claudication; G89.29 Other chronic pain ==

== ENCOUNTER → 2021-02-08 | Outpatient (CLI) | payer OTHER ==
[~2021-02-08] MED LIST changes: +ACETAMINOPHEN500 M1 PO; +ASA81BEC PO; -NEURONTIN 300300 M1 PO; +NEURONTIN300 MG PO; +NITROSTAT0.4 M1 SUBLING; +PAXIL 20 MG TAB20 M1 PO; -PAXIL 20 MG TAB20 MG PO; +PEPCID40 MG PO; +PROTONIX40 M4 PO
[2021-02-08 11:49] LABS: CHOLESTEROL 123 mg/dL (<200); HDL CHOLESTEROL 41 mg/dL (>40); LDL CHOLESTEROL 60 mg/dL (<100); SERUM ASSESSMENT Clear; TRIGLYCERIDE 110 mg/dL (<150); VLDL 22 mg/dL (<40)
== END ==
LOC: M.PC 09:30
PROVIDERS: ATTEND Anesthesiology Pain Medicine
DX: E78.2 Mixed hyperlipidemia (principal); M54.16 Radiculopathy, lumbar region; E11.9 Type 2 diabetes mellitus without complications; D64.9 Anemia, unspecified; I10 Essential (primary) hypertension; G47.30 Sleep apnea, unspecified; E78.5 Hyperlipidemia, unspecified; I25.110 Atherosclerotic heart disease of native coronary artery with unstable angina pectoris; E78.00 Pure hypercholesterolemia, unspecified; I71.4 Abdominal aortic aneurysm, without rupture; C80.1 Malignant (primary) neoplasm, unspecified; M19.90 Unspecified osteoarthritis, unspecified site; Z88.2 Allergy status to sulfonamides; Z72.0 Tobacco use

== ENCOUNTER → 2021-02-20 | Outpatient (CLI) | payer OTHER | END | disposition home or self-care (01) | LOC: M.PC 10:36 | PROVIDERS: ATTEND Anesthesiology Pain Medicine | DX: M51.16 Intervertebral disc disorders with radiculopathy, lumbar region (principal); M48.061 Spinal stenosis, lumbar region without neurogenic claudication; G89.29 Other chronic pain; I10 Essential (primary) hypertension; I25.2 Old myocardial infarction; E11.9 Type 2 diabetes mellitus without complications; E78.00 Pure hypercholesterolemia, unspecified; E78.5 Hyperlipidemia, unspecified; G47.30 Sleep apnea, unspecified; M19.90 Unspecified osteoarthritis, unspecified site; F17.210 Nicotine dependence, cigarettes, uncomplicated; Z98.890 Other specified postprocedural states; Z79.899 Other long term (current) drug therapy; Z86.73 Personal history of transient ischemic attack (TIA), and cerebral infarction without residual deficits; Z88.2 Allergy status to sulfonamides; Z85.89 Personal history of malignant neoplasm of other organs and systems ==